=== PATIENT | female | born 1990 | race Caucasian/White ===

== ENCOUNTER 2016-07-25 08:58 | Emergency (ER) | payer OTHER ==
[~2016-07-25 08:58] MED LIST: CEL20 PO
[2016-07-25 10:28] LABS: BASOPHIL % 0.3 % (0-2); PLATELET COUNT 268 x10^3mcL (130-400); RED CELL DISTRIBUTION WIDTH 13.5 % (11.5-14.5)
[2016-07-25 10:30] LABS: CALCIUM 8.4 mg/dL (8.5-10.1); CARBON DIOXIDE 27.1 mmol/L (21-32); CHLORIDE SERUM 109 mmol/L (98-107); CREATININE SERUM 0.6 mg/dL (0.6-1.0); GFR1 > 60 mL/min; GLUCOSE SERUM 102 mg/dL (74-106); POTASSIUM SERUM 3.8 mmol/L (3.5-5.1); SODIUM SERUM 145 mmol/L (136-145)
[2016-07-25 10:35] LABS: ALBUMIN 3.7 g/dL (3.4-5.0); ALKALINE PHOSPHATASE 50 U/L (46-116); ALT/SGPT 30 U/L (14-59); AST/SGOT 35 U/L (15-37); BILIRUBIN TOTAL 0.16 mg/dL (0.20-1.00); TOTAL PROTEIN, SERUM 7.1 g/dL (6.4-8.2)
[2016-07-25 11:16] LABS: AMPHETAMINE QUAL UR NONE DETECTED (NEG <=1000)
[2016-07-25 15:05] VITALS: BP 106/77
== END 2016-07-25 15:05 | disposition home or self-care (01) ==
LOC: ED 08:58
PROVIDERS: Emergency Medicine
DX: F10.129 Alcohol abuse with intoxication, unspecified (principal)
CPT/HCPCS: 80307; G0480; J0696; J2060; J2405; J7030

== ENCOUNTER 2016-07-29 21:11 | Emergency (ER) | payer OTHER ==
[2016-07-30 00:41] VITALS: BP 108/76
== END 2016-07-30 00:41 | disposition home or self-care (01) ==
LOC: ED 21:11
DX: F41.9 Anxiety disorder, unspecified (principal); F43.10 Post-traumatic stress disorder, unspecified; Z79.899 Other long term (current) drug therapy; X58.XXXA Exposure to other specified factors, initial encounter; Y93.89 Activity, other specified; Y92.89 Other specified places as the place of occurrence of the external cause; Y99.8 Other external cause status

== ENCOUNTER 2016-10-14 22:34 | Emergency (ER) | payer OTHER ==
[2016-10-14 23:04] VITALS: BP 111/65
== END 2016-10-15 01:49 | disposition left against medical advice (07) ==
LOC: ED 22:34
DX: Z53.21 Procedure and treatment not carried out due to patient leaving prior to being seen by health care provider (principal)

== ENCOUNTER 2016-10-15 21:44 | Emergency (ER) | payer OTHER ==
[2016-10-16] VITALS: BP 122/73
== END 2016-10-16 00:01 | disposition home or self-care (01) ==
LOC: ED 21:44
DX: S02.2XXA Fracture of nasal bones, initial encounter for closed fracture (principal); S01.21XA Laceration without foreign body of nose, initial encounter; X58.XXXA Exposure to other specified factors, initial encounter; Y93.89 Activity, other specified; Y92.89 Other specified places as the place of occurrence of the external cause; Y99.8 Other external cause status
CPT/HCPCS: 90715

== ENCOUNTER 2016-11-25 12:15 | Emergency (ER) | payer OTHER ==
[~2016-11-25] VITALS: Ht 154.9 cm; Wt 57.6 kg
[2016-11-25 14:25] LABS: AMPHETAMINE QUAL UR NONE DETECTED (NEG <=1000)
[2016-11-25 14:36] VITALS: BP 118/84
== END 2016-11-25 15:55 | disposition home or self-care (01) ==
LOC: ED 12:15
PROVIDERS: Emergency Medicine
DX: F45.8 Other somatoform disorders (principal); F41.9 Anxiety disorder, unspecified
CPT/HCPCS: 36600

== ENCOUNTER 2016-11-29 04:22 | Inpatient (IN) | payer OTHER ==
[~2016-11-29] VITALS: Ht 154.9 cm; Wt 56.7 kg
[2016-11-29 05:00] LABS: BASOPHIL % 0.2 % (0-2); PLATELET COUNT 332 x10^3mcL (130-400)
[2016-11-29 05:09] LABS: CALCIUM 8.7 mg/dL (8.5-10.1); CHLORIDE SERUM 110 mmol/L (98-107); CREATININE SERUM 0.7 mg/dL (0.6-1.0); GFR1 > 60 mL/min; GLUCOSE SERUM 105 mg/dL (74-106); SODIUM SERUM 147 mmol/L (136-145)
[2016-11-29 05:13] LABS: AMPHETAMINE QUAL UR NONE DETECTED (NEG <=1000)
[2016-11-29 05:15] LABS: ALBUMIN 3.9 g/dL (3.4-5.0); ALKALINE PHOSPHATASE 62 U/L (46-116); ALT/SGPT 27 U/L (14-59); AST/SGOT 15 U/L (15-37); BILIRUBIN TOTAL 0.15 mg/dL (0.20-1.00)
[2016-11-29 05:19] LABS: TOTAL PROTEIN, SERUM 8.3 g/dL (6.4-8.2)
[2016-11-29 06:55] VITALS: BP 104/59
[2016-11-29 08:06] LABS: T3 TOTAL 0.91 ng/mL
[2016-11-29 08:19] LABS: FREE T4 1.3 ng/dL (0.76-1.46); FREE THYROXINE INDEX 3.8 ug/dL (1.4-4.5); T4(THYROXINE) 9.4 ug/dL (4.7-13.3)
[2016-11-29 08:23] VITALS: BP 104/59
[2016-11-29 08:31] LABS: CHOLESTEROL/HDL RATIO 3.1; MAGNESIUM 2.6 mg/dL (1.8-2.4); PHOSPHOROUS 4.4 mg/dL (2.5-4.9)
[2016-11-29 09:32] VITALS: BP 99/59
[2016-11-29 13:21] VITALS: BP 98/51
[2016-11-29 17:12] VITALS: BP 103/64
[2016-11-29 22:02] VITALS: BP 110/64
[2016-11-30 08:56] LABS: BASOPHIL % 0.3 % (0-2); CALCIUM 9.1 mg/dL (8.5-10.1); CHLORIDE SERUM 105 mmol/L (98-107); CREATININE SERUM 0.6 mg/dL (0.6-1.0); GFR1 > 60 mL/min; GLUCOSE SERUM 75 mg/dL (74-106); MAGNESIUM 2.1 mg/dL (1.8-2.4); PHOSPHOROUS 3.2 mg/dL (2.5-4.9); PLATELET COUNT 266 x10^3mcL (130-400); RED CELL DISTRIBUTION WIDTH 14.1 % (11.5-14.5); SODIUM SERUM 140 mmol/L (136-145)
[2016-11-30 11:51] VITALS: BP 98/72
[2016-11-30] MEDS ORDERED: FOL1 PO (12:41)
[2016-11-30] MEDS ORDERED: THERAGRAN-M1 TA4 PO (12:42)
[2016-11-30 13:28] VITALS: BP 98/72
== END 2016-11-30 13:46 | disposition home or self-care (01) | DRG 774 ==
LOC: ED 04:22 → DU 06:10
PROVIDERS: Emergency Medicine; ADMIT Family Medicine
DX: F10.129 Alcohol abuse with intoxication, unspecified (principal); F14.129 Cocaine abuse with intoxication, unspecified; G92 Toxic encephalopathy; E87.0 Hyperosmolality and hypernatremia; E87.8 Other disorders of electrolyte and fluid balance, not elsewhere classified; E83.41 Hypermagnesemia; G47.00 Insomnia, unspecified; F41.8 Other specified anxiety disorders; Q63.1 Lobulated, fused and horseshoe kidney; F33.9 Major depressive disorder, recurrent, unspecified
CPT/HCPCS: 83880; 84439; G0480; J1630; J2060; J7030; Q0092

== ENCOUNTER 2017-04-15 09:52 | Emergency (ER) | payer OTHER ==
[~2017-04-15] VITALS: Ht 154.9 cm; Wt 57.8 kg
[~2017-04-15 09:52] MED LIST changes: +FOL1 PO; +THERAGRAN-M1 TA4 PO
[2017-04-15 10:38] VITALS: Ht 154.9 cm; Wt 57.8 kg
[2017-04-15 13:43] LABS: BASOPHIL % 0.4 % (0-2); PLATELET COUNT 276 x10^3mcL (130-400); RED CELL DISTRIBUTION WIDTH 14.1 % (11.5-14.5)
[2017-04-15 13:48] LABS: UA SPECIFIC GRAVITY 1.015 (1.005-1.035); microscopic required? YES; urine erythrocyte 1+ (NEGATIVE)
[2017-04-15 14:13] LABS: CALCIUM 9.2 mg/dL (8.5-10.1); CARBON DIOXIDE 24.2 mmol/L (21-32); CHLORIDE SERUM 107 mmol/L (98-107); CREATININE SERUM 0.7 mg/dL (0.6-1.0); GFR1 > 60 mL/min; GLUCOSE SERUM 93 mg/dL (74-106); POTASSIUM SERUM 3.6 mmol/L (3.5-5.1); SODIUM SERUM 145 mmol/L (136-145)
[2017-04-15 14:19] LABS: ALBUMIN 4.1 g/dL (3.4-5.0); ALKALINE PHOSPHATASE 64 U/L (46-116); ALT/SGPT 26 U/L (14-59); AST/SGOT 16 U/L (15-37)
[2017-04-15 14:26] LABS: AMPHETAMINE QUAL UR POSITIVE (NEG <=1000)
[2017-04-15 14:59] VITALS: BP 116/82
== END 2017-04-15 14:59 | disposition home or self-care (01) ==
LOC: ED 09:52
PROVIDERS: Specialist
DX: T76.21XA Adult sexual abuse, suspected, initial encounter (principal); F10.129 Alcohol abuse with intoxication, unspecified; F19.90 Other psychoactive substance use, unspecified, uncomplicated; G89.29 Other chronic pain; R10.2 Pelvic and perineal pain; F41.9 Anxiety disorder, unspecified
CPT/HCPCS: 36415; G0480

== ENCOUNTER 2017-06-21 22:38 | Emergency (ER) | payer OTHER ==
[~2017-06-21] VITALS: Ht 154.9 cm; Wt 59.9 kg
[2017-06-21 23:02] VITALS: Ht 154.9 cm; Wt 59.9 kg
[2017-06-21 23:42] VITALS: BP 147/74
== END 2017-06-21 23:42 | disposition home or self-care (01) ==
LOC: ED 22:38
DX: R20.0 Anesthesia of skin (principal); N64.59 Other signs and symptoms in breast

== ENCOUNTER 2017-07-05 22:47 | Emergency (ER) | payer OTHER ==
[~2017-07-05] VITALS: Ht 160 cm; Wt 54.9 kg
[2017-07-05 22:52] VITALS: Ht 160 cm; Wt 54.9 kg
[2017-07-05 23:35] LABS: BASOPHIL % 0.4 % (0-2); PLATELET COUNT 315 x10^3mcL (130-400); RED CELL DISTRIBUTION WIDTH 14.2 % (11.5-14.5)
[2017-07-05 23:48] LABS: CALCIUM 8.6 mg/dL (8.5-10.1); CARBON DIOXIDE 21.7 mmol/L (21-32); CHLORIDE SERUM 107 mmol/L (98-107); CREATININE SERUM 0.7 mg/dL (0.6-1.0); GFR1 > 60 mL/min; GLUCOSE SERUM 144 mg/dL (74-106); POTASSIUM SERUM 3.5 mmol/L (3.5-5.1); SODIUM SERUM 143 mmol/L (136-145)
[2017-07-05 23:56] LABS: AMPHETAMINE QUAL UR NONE DETECTED (NEG <=1000)
[2017-07-06 00:12] LABS: BILIRUBIN TOTAL 0.1 mg/dL (0.20-1.00)
[2017-07-06 00:17] LABS: ALKALINE PHOSPHATASE 46 U/L (46-116); AST/SGOT 16 U/L (15-37); FREE T4 1.25 ng/dL (0.76-1.46); TOTAL PROTEIN, SERUM 7.4 g/dL (6.4-8.2)
[2017-07-06 00:18] LABS: ALT/SGPT 32 U/L (14-59)
[2017-07-06 15:44] VITALS: BP 114/65
== END 2017-07-06 16:17 | disposition home or self-care (01) ==
LOC: ED 22:47
PROVIDERS: Emergency Medicine
DX: F10.129 Alcohol abuse with intoxication, unspecified (principal); F32.9 Major depressive disorder, single episode, unspecified
CPT/HCPCS: 84439; G0480; J3411; J3475; J3490; J7030